=== PATIENT | male | born 1955 | race Caucasian/White ===

== ENCOUNTER 2020-11-06 14:15 | Emergency (ER) | payer OTHER ==
[~2020-11-06] VITALS: Ht 175.3 cm; Wt 61.0 kg
[2020-11-06 14:27] VITALS: BP 106/65
[2020-11-06] MEDS ORDERED: dexamethasone sod phosphate 10mg/ml inj PO STA (15:05)
[2020-11-06] MEDS ORDERED: ALBU8.5H17 IH (15:45)
[2020-11-06] MEDS ORDERED: DEXA6TAB6 PO (15:45)
== END 2020-11-06 16:21 | disposition home or self-care (01) ==
LOC: ER 14:16
DX: U07.1 COVID-19 (principal); R05 Cough; R51.9 Headache, unspecified; Z79.899 Other long term (current) drug therapy
CPT/HCPCS: 99283; J1100

== ENCOUNTER 2020-11-09 07:07 | Inpatient (IN) | payer OTHER ==
[~2020-11-09] VITALS: Ht 172.7 cm; Wt 59.1 kg
[2020-11-09] MEDS: normal saline 1000ml 1,000 ML IV SCH ×2 (00:30→11:49)
[~2020-11-09 07:07] MED LIST: ALBU8.5H17 IH; DEXA6TAB6 PO
[2020-11-09] MEDS ORDERED: dexamethasone sod phosphate 10mg/ml inj IV STA (07:27)
[2020-11-09] MEDS ORDERED: normal saline 1000ml 1,000 ML IV ONE (07:30)
[2020-11-09 08:25] LABS: BASOPHILS % (AUTO) 0.1 % (0-1); EOSINOPHILS % (AUTO) 0 % (0-6); HEMOGLOBIN 17.3 g/dl (14.0-17.9); LYMPHOCYTES # (AUTO) 0.4 X10'3 (1.1-4.8); LYMPHOCYTES % (AUTO) 2.6 % (21-51); MEAN CORPUSCULAR VOLUME 100.1 FL (78-98); MEAN PLATELET VOLUME 10.1 FL (7.4-10.4); MONOCYTES # (AUTO) 0.6 X10'3 (0-0.9); MONOCYTES % (AUTO) 3.4 % (2-12); NEUTROPHILS # (AUTO) 15.6 X10'3 (1.8-7.7); NEUTROPHILS % (AUTO) 93.9 % (42-75); PLATELET COUNT 100 X10'3 (140-440); RED BLOOD COUNT 5.09 X10'6 (4.70-6.10); WHITE BLOOD COUNT 16.6 X10'3 (4.5-11.0)
[2020-11-09 08:45] LABS: PLATELET ESTIMATE DECREASED; TOTAL CELLS COUNTED 100
[2020-11-09] MEDS ORDERED: azithromycin/NS 500mg/250ml 250 ML IV ONE (09:05)
[2020-11-09] MEDS ORDERED: CefTRIAXone/D5W-Rocephin 1gm 50 ML IV ONE (09:05)
[2020-11-09 09:07] LABS: ALANINE AMINOTRANSFERASE 31 U/L (12-78); ALBUMIN 3.3 G/DL (3.4-5.0); ALBUMIN/GLOBULIN RATIO 0.7 (1.1-1.5); ALKALINE PHOSPHATASE 59 IU/L (46-116); ANION GAP 9 (8-16); ASPARTATE AMINO TRANSFERASE 49 U/L (10-37); BILIRUBIN,TOTAL 0.7 MG/DL (0.1-1.0); BLOOD UREA NITROGEN 36 MG/DL (7-18); BUN/CREATININE RATIO 17.5 (5.4-32.0); CALCIUM 9.1 MG/DL (8.5-10.1); CHLORIDE 103 MMOL/L (99-107); CREATININE 2.06 MG/DL (0.60-1.10); GLUCOSE 147 MG/DL (70-104); POTASSIUM 4.8 MMOL/L (3.5-5.1); SODIUM 141 MMOL/L (135-145); TOTAL CARBON DIOXIDE 28.6 MMOL/L (24-32); eGFR 33 ML/MIN
[2020-11-09 09:11] LABS: FERRITIN 832 NG/ML (26-388); LACTATE DEHYDROGENASE 323 U/L (85-227); MAGNESIUM 2.5 MG/DL (1.5-2.4); TROPONIN I < 0.04 NG/ML (0.0-0.05)
[2020-11-09] MEDS ORDERED: REMDESIVIR INJ 200 MG in normal saline 100ml IV soln 60 ML IV ONE (09:15)
[2020-11-09 10:18] LABS: D-DIMER 1.05 MG/L FEU (0-0.50)
[2020-11-09] MEDS ORDERED: magnesium Cl slow-release 64mg tablet PO PRN (10:20)
[2020-11-09] MEDS ORDERED: potassium Cl 20 mEq SR tablet PO PRN ×2 (10:20)
[2020-11-09] MEDS ORDERED: ondansetron/PF 4mg/2ml inj IV PRN (10:20)
[2020-11-09] MEDS ORDERED: potassium Cl 40MEQ/1/2NS 520ml 520 ML IV PRN ×2 (10:20)
[2020-11-09] MEDS ORDERED: acetaminophen 325mg tablet PO PRN (10:20)
[2020-11-09] MEDS ORDERED: magnesium 2GM in 50ml NS 50 ML IV PRN (10:20)
[2020-11-09] MEDS ORDERED: magnesium 4gm in 100ml NS 100 ML IV PRN (10:20)
[2020-11-09] MEDS: enoxaparin 40mg/0.4ml syringe SUBCUT SCH (11:49)
[2020-11-09] MEDS ORDERED: DEXA6TAB PO (12:49)
[2020-11-09] MEDS ORDERED: ALBU17AE26 IH (12:49)
--- NOTE | 2020-11-09 13:13 | NUR ---
RECEIVED REPORT FROM IVAN CONRAD IN ER. PT GOING TO ROOM [id number]
[2020-11-09 13:25] VITALS: BP 99/63
--- NOTE | 2020-11-09 14:23 | NUR ---
PT ARRIVED TO FLOOR AT 1941
--- NOTE | 2020-11-09 15:54 | NUR ---
Page Sent PAGER ID: [phone] MESSAGE: [id number] RE: RADHA OAKLEY [id number] PT BROUGHT ALBUTEROL INHALER ON ADMIT. WOULD YOU LIKE TO ORDER THE MED OR JUST STORE IN PHARMACY FOR THE TIME BEING? THANK YOU!
[2020-11-09] MEDS ORDERED: ALBUTEROL INHALER 1 PUFF/90 MCG INHALER IH PRN ×2 (16:00→16:02)
--- NOTE | 2020-11-09 18:21 | NUR ---
Problems reprioritized. Patient report given, questions answered & plan of care reviewed with IVAN CASTANON.
[2020-11-09] MEDS ORDERED: REMDESIVIR INJ 100 MG in normal saline 100ml IV soln 80 ML IV SCH (18:45)
[2020-11-09] MEDS ORDERED: albuterol 60 PUFF/8GM Inhaler IH PRN (18:45)
[2020-11-09] MEDS: CefTRIAXone/D5W-Rocephin 1gm 50 ML IV SCH (18:45)
[2020-11-09] MEDS: K and/or MAG REPLACEMENT MC SCH (20:00)
[2020-11-09] MEDS: azithromycin/NS 500mg/250ml 250 ML IV SCH (20:33)
[2020-11-10 06:00] VITALS: BP 104/61
--- NOTE | 2020-11-10 06:18 | NUR ---
Patient in room ORTHO 4021A. I have received report from IVAN CASTANON and had the opportunity to ask questions and assume patient care.
[2020-11-10] MEDS: normal saline 1000ml 1,000 ML IV SCH ×3 (06:20→20:52)
[2020-11-10] MEDS: K and/or MAG REPLACEMENT MC SCH ×2 (08:00→19:13)
[2020-11-10] MEDS ORDERED: dexamethasone 4mg/ml inj IM SCH (08:00)
[2020-11-10] MEDS: CefTRIAXone/D5W-Rocephin 1gm 50 ML IV SCH (08:20)
[2020-11-10 08:32] LABS: EOSINOPHILS % (AUTO) 0 % (0-6); HEMOGLOBIN 15.9 g/dl (14.0-17.9); LYMPHOCYTES # (AUTO) 0.7 X10'3 (1.1-4.8); MONOCYTES # (AUTO) 0.7 X10'3 (0-0.9); RED CELL DISTRIBUTION WIDTH 13.6 % (11.5-14.5)
[2020-11-10 08:35] LABS: BASOPHILS % (AUTO) 0.3 % (0-1); HEMATOCRIT 47.1 % (42.0-52.0); LYMPHOCYTES % (AUTO) 5.1 % (21-51); MEAN CORPUSCULAR HEMOGLOBIN 33.7 PG (27.0-31.0); MEAN CORPUSCULAR HGB CONC 33.8 g/dL (33.0-36.5); MEAN CORPUSCULAR VOLUME 99.9 FL (78-98); MEAN PLATELET VOLUME 10.5 FL (7.4-10.4); MONOCYTES % (AUTO) 5.1 % (2-12); NEUTROPHILS # (AUTO) 12.3 X10'3 (1.8-7.7); NEUTROPHILS % (AUTO) 89.5 % (42-75); PLATELET COUNT 111 X10'3 (140-440); RED BLOOD COUNT 4.71 X10'6 (4.70-6.10); WHITE BLOOD COUNT 13.7 X10'3 (4.5-11.0)
[2020-11-10 08:57] LABS: ALBUMIN 2.2 G/DL (3.4-5.0); ANION GAP 9 (8-16); BLOOD UREA NITROGEN 32 MG/DL (7-18); BUN/CREATININE RATIO 24.2 (5.4-32.0); CALCIUM 8.6 MG/DL (8.5-10.1); CHLORIDE 110 MMOL/L (99-107); CREATININE 1.32 MG/DL (0.60-1.10); GLUCOSE 123 MG/DL (70-104); MAGNESIUM 2.4 MG/DL (1.5-2.4); POTASSIUM 4.8 MMOL/L (3.5-5.1); SODIUM 146 MMOL/L (135-145); TOTAL CARBON DIOXIDE 27.3 MMOL/L (24-32); eGFR 55 ML/MIN
[2020-11-10] MEDS: dexamethasone inj 8 MG in normal saline 50ml IV soln 50 ML IV SCH (09:11)
[2020-11-10] MEDS: enoxaparin 40mg/0.4ml syringe SUBCUT SCH (09:49)
[2020-11-10] MEDS: azithromycin/NS 500mg/250ml 250 ML IV SCH (09:49)
[2020-11-10 10:00] VITALS: BP 89/59
[2020-11-10] MEDS: REMDESIVIR INJ 100 MG in normal saline 100ml IV soln 80 ML IV SCH (11:22)
[2020-11-10 13:53] LABS: LARGE PLATELETS FEW; PLATELET ESTIMATE DECREASED
[2020-11-10 14:00] VITALS: BP 136/87
--- NOTE | 2020-11-10 18:13 | NUR ---
Problems reprioritized. Patient report given, questions answered & plan of care reviewed with IVAN CASTANON.
[2020-11-10] MEDS: lactobacillus rhamnosus 10,000 MMU CELLS/CAPSULE PO SCH (21:22)
[2020-11-10 22:00] VITALS: BP 124/78
[2020-11-11 02:00] VITALS: BP 128/76
[2020-11-11 06:00] VITALS: BP 96/65
--- NOTE | 2020-11-11 06:45 | NUR ---
Patient in room ORTHO 4021. I have received report from Maritza LOVE and had the opportunity to ask questions and assume patient care.
[2020-11-11] MEDS: K and/or MAG REPLACEMENT MC SCH ×2 (08:00→20:00)
[2020-11-11] MEDS ORDERED: REMDESIVIR INJ 100 MG in normal saline 100ml IV soln 80 ML IV SCH (08:00)
[2020-11-11 08:26] LABS: EOSINOPHILS % (AUTO) 0 % (0-6); LYMPHOCYTES # (AUTO) 0.5 X10'3 (1.1-4.8); LYMPHOCYTES % (AUTO) 4.7 % (21-51); MONOCYTES # (AUTO) 0.7 X10'3 (0-0.9); MONOCYTES % (AUTO) 6.5 % (2-12)
[2020-11-11 08:27] LABS: BASOPHILS # (AUTO) 0.1 X10'3 (0-0.2); BASOPHILS % (AUTO) 0.5 % (0-1); HEMATOCRIT 44.9 % (42.0-52.0); MEAN CORPUSCULAR HEMOGLOBIN 33.7 PG (27.0-31.0); MEAN CORPUSCULAR HGB CONC 33.5 g/dL (33.0-36.5); MEAN CORPUSCULAR VOLUME 100.7 FL (78-98); MEAN PLATELET VOLUME 9.7 FL (7.4-10.4); NEUTROPHILS # (AUTO) 9.4 X10'3 (1.8-7.7); NEUTROPHILS % (AUTO) 88.3 % (42-75); PLATELET COUNT 137 X10'3 (140-440); RED BLOOD COUNT 4.46 X10'6 (4.70-6.10); RED CELL DISTRIBUTION WIDTH 13.7 % (11.5-14.5); WHITE BLOOD COUNT 10.6 X10'3 (4.5-11.0)
[2020-11-11] MEDS: lactobacillus rhamnosus 10,000 MMU CELLS/CAPSULE PO SCH ×2 (08:27→20:32)
[2020-11-11] MEDS: REMDESIVIR INJ 100 MG in normal saline 100ml IV soln 80 ML IV SCH (08:27)
[2020-11-11] MEDS: azithromycin/NS 500mg/250ml 250 ML IV SCH (08:27)
[2020-11-11] MEDS: dexamethasone inj 8 MG in normal saline 50ml IV soln 50 ML IV SCH (08:27)
[2020-11-11] MEDS: CefTRIAXone/D5W-Rocephin 1gm 50 ML IV SCH (08:27)
[2020-11-11] MEDS: enoxaparin 40mg/0.4ml syringe SUBCUT SCH (08:28)
[2020-11-11 08:37] LABS: ALBUMIN 2.1 G/DL (3.4-5.0); ANION GAP 5 (8-16); BLOOD UREA NITROGEN 32 MG/DL (7-18); BUN/CREATININE RATIO 28.3 (5.4-32.0); CALCIUM 8.6 MG/DL (8.5-10.1); CHLORIDE 111 MMOL/L (99-107); CREATININE 1.13 MG/DL (0.60-1.10); GLUCOSE 134 MG/DL (70-104); MAGNESIUM 2.5 MG/DL (1.5-2.4); POTASSIUM 5.1 MMOL/L (3.5-5.1); SODIUM 145 MMOL/L (135-145); TOTAL CARBON DIOXIDE 28.9 MMOL/L (24-32); eGFR 66 ML/MIN
[2020-11-11] MEDS: normal saline 1000ml 1,000 ML IV SCH ×2 (09:17→22:38)
[2020-11-11 10:00] VITALS: BP 104/64
[2020-11-11 11:49] LABS: LARGE PLATELETS FEW; PLATELET ESTIMATE DECREASED
[2020-11-11 14:00] VITALS: BP 101/60
--- NOTE | 2020-11-11 18:34 | NUR ---
Problems reprioritized. Patient report given, questions answered & plan of care reviewed with Radha LOVE.
[2020-11-12 06:00] VITALS: BP 101/58
--- NOTE | 2020-11-12 06:49 | NUR ---
Problems reprioritized. Patient report given, questions answered & plan of care reviewed with Dominique .
[2020-11-12] MEDS: REMDESIVIR INJ 100 MG in normal saline 100ml IV soln 80 ML IV SCH (07:59)
[2020-11-12] MEDS: dexamethasone inj 8 MG in normal saline 50ml IV soln 50 ML IV SCH (07:59)
[2020-11-12] MEDS: CefTRIAXone/D5W-Rocephin 1gm 50 ML IV SCH (07:59)
[2020-11-12] MEDS: K and/or MAG REPLACEMENT MC SCH ×2 (08:00→20:00)
[2020-11-12] MEDS: normal saline 1000ml 1,000 ML IV SCH ×2 (08:01→20:29)
[2020-11-12] MEDS: azithromycin 250mg tablet PO SCH (08:01)
[2020-11-12] MEDS: lactobacillus rhamnosus 10,000 MMU CELLS/CAPSULE PO SCH ×2 (08:01→20:27)
[2020-11-12] MEDS: enoxaparin 40mg/0.4ml syringe SUBCUT SCH (08:01)
[2020-11-12 09:02] LABS: BASOPHILS % (AUTO) 0.4 % (0-1); EOSINOPHILS % (AUTO) 0 % (0-6); HEMATOCRIT 46.3 % (42.0-52.0); HEMOGLOBIN 15.3 g/dl (14.0-17.9); LYMPHOCYTES # (AUTO) 0.6 X10'3 (1.1-4.8); LYMPHOCYTES % (AUTO) 6.2 % (21-51); MEAN CORPUSCULAR HEMOGLOBIN 33.6 PG (27.0-31.0); MEAN CORPUSCULAR HGB CONC 33.1 g/dL (33.0-36.5); MEAN CORPUSCULAR VOLUME 101.6 FL (78-98); MEAN PLATELET VOLUME 9.8 FL (7.4-10.4); MONOCYTES # (AUTO) 0.8 X10'3 (0-0.9); MONOCYTES % (AUTO) 9.4 % (2-12); NEUTROPHILS # (AUTO) 7.5 X10'3 (1.8-7.7); PLATELET COUNT 175 X10'3 (140-440); RED BLOOD COUNT 4.56 X10'6 (4.70-6.10); RED CELL DISTRIBUTION WIDTH 13.4 % (11.5-14.5); WHITE BLOOD COUNT 8.9 X10'3 (4.5-11.0)
[2020-11-12 09:06] LABS: ALBUMIN 2.3 G/DL (3.4-5.0); ANION GAP 8 (8-16); BLOOD UREA NITROGEN 30 MG/DL (7-18); BUN/CREATININE RATIO 26.5 (5.4-32.0); CALCIUM 8.8 MG/DL (8.5-10.1); CHLORIDE 110 MMOL/L (99-107); CREATININE 1.13 MG/DL (0.60-1.10); GLUCOSE 124 MG/DL (70-104); MAGNESIUM 2.2 MG/DL (1.5-2.4); SODIUM 147 MMOL/L (135-145); eGFR 66 ML/MIN
[2020-11-12 10:00] VITALS: BP 99/59
[2020-11-12 10:46] LABS: TOTAL CELLS COUNTED 100
[2020-11-12 10:48] LABS: LARGE PLATELETS FEW
[2020-11-12 10:51] LABS: PLATELET ESTIMATE NORMAL
[2020-11-12 14:54] VITALS: BP 94/51
[2020-11-12 18:00] VITALS: BP 99/53
--- NOTE | 2020-11-12 18:30 | NUR ---
Patient in room ORTHO 4021. I have received report from Dominique LOVE and had the opportunity to ask questions and assume patient care.
[2020-11-12 22:00] VITALS: BP 99/56
[2020-11-13 01:51] VITALS: BP 106/67
[2020-11-13] MEDS: normal saline 1000ml 1,000 ML IV SCH (04:31)
--- NOTE | 2020-11-13 06:07 | NUR ---
Problems reprioritized. Patient report given, questions answered & plan of care reviewed with Shraddha LOVE.
--- NOTE | 2020-11-13 06:11 | NUR ---
Patient in room ORTHO 4021. I have received report from Radha LOVE and had the opportunity to ask questions and assume patient care.
[2020-11-13 06:12] VITALS: BP 120/67
[2020-11-13] MEDS: enoxaparin 40mg/0.4ml syringe SUBCUT SCH (07:33)
[2020-11-13] MEDS: lactobacillus rhamnosus 10,000 MMU CELLS/CAPSULE PO SCH (07:33)
[2020-11-13] MEDS: azithromycin 250mg tablet PO SCH (07:33)
[2020-11-13] MEDS: CefTRIAXone/D5W-Rocephin 1gm 50 ML IV SCH (07:33)
[2020-11-13] MEDS: dexamethasone inj 8 MG in normal saline 50ml IV soln 50 ML IV SCH (07:33)
[2020-11-13 07:49] LABS: BASOPHILS # (AUTO) 0.1 X10'3 (0-0.2); BASOPHILS % (AUTO) 0.7 % (0-1); EOSINOPHILS % (AUTO) 0 % (0-6); HEMATOCRIT 47.2 % (42.0-52.0); HEMOGLOBIN 15.9 g/dl (14.0-17.9); LYMPHOCYTES # (AUTO) 0.6 X10'3 (1.1-4.8); LYMPHOCYTES % (AUTO) 5.6 % (21-51); MEAN CORPUSCULAR HGB CONC 33.6 g/dL (33.0-36.5); MEAN CORPUSCULAR VOLUME 100.9 FL (78-98); MEAN PLATELET VOLUME 8.9 FL (7.4-10.4); MONOCYTES # (AUTO) 1.2 X10'3 (0-0.9); MONOCYTES % (AUTO) 11.1 % (2-12); NEUTROPHILS # (AUTO) 8.8 X10'3 (1.8-7.7); NEUTROPHILS % (AUTO) 82.6 % (42-75); PLATELET COUNT 232 X10'3 (140-440); RED BLOOD COUNT 4.67 X10'6 (4.70-6.10); WHITE BLOOD COUNT 10.7 X10'3 (4.5-11.0)
[2020-11-13] MEDS: REMDESIVIR INJ 100 MG in normal saline 100ml IV soln 80 ML IV SCH (07:49)
[2020-11-13] MEDS: K and/or MAG REPLACEMENT MC SCH (08:00)
[2020-11-13 08:06] LABS: ALBUMIN 2.3 G/DL (3.4-5.0); ANION GAP 3 (8-16); BLOOD UREA NITROGEN 30 MG/DL (7-18); BUN/CREATININE RATIO 25.9 (5.4-32.0); CALCIUM 8.6 MG/DL (8.5-10.1); CHLORIDE 109 MMOL/L (99-107); CREATININE 1.16 MG/DL (0.60-1.10); GLUCOSE 113 MG/DL (70-104); MAGNESIUM 2.6 MG/DL (1.5-2.4); POTASSIUM 4.7 MMOL/L (3.5-5.1); SODIUM 143 MMOL/L (135-145); TOTAL CARBON DIOXIDE 30.6 MMOL/L (24-32); eGFR 64 ML/MIN
[2020-11-13 09:38] VITALS: BP 115/63
--- NOTE | 2020-11-13 10:32 | NUR ---
O2 Sat at rest on room air:__84_% If below 89%: Recovery O2 Sat at rest on _92__LPM:__3_%:___% via nasal cannula (mask/nasal cannula, etc..) No further documentation is necessary. If O2 Sat did not drop below 89% on room air,ambulate patient on room air. O2 Sat while ambulating on room air:___% Recovery O2 Sat while ambulating on ___LPM:___% No further documentation is necessary. If patient does not drop below 89% while ambulating, he/she does not qualify for home O2.
[2020-11-13] MEDS ORDERED: AZI25OT PO (10:57)
[2020-11-13] MEDS ORDERED: PRED10TA23 PO (10:57)
--- NOTE | 2020-11-13 13:40 | NUR ---
Patient discharged to home via private wheelchair. Home 02 sent with patient and educated on use. [facility] Patient verbalized understanding of all instructions. Discharged with girlfriend with complications. 22 gauge iv removed from left forearm, cannula intact no complications
--- NOTE | 2020-11-13 14:53 | NUR ---
Initial: Pt admit DX COVID-19, PNA, and ALLISON per EMR. PO 75% avg heart healthy diet meeting kcal needs and just shy of meeting estimated protein needs; smoothies BIDBD added to meals to optimize protein intake; dietary notified. [facility] 11/10. Will continue to monitor. Rec: 1. continue heart healthy diet 2. smoothie BIDBD; encourage PO 3. routine bowel care 4. scaled wt this admit; subsequent weekly wts Addendum: 11/13/20 at [address] Amended: Links added.
== END 2020-11-13 13:30 | disposition home or self-care (01) | DRG 177 ==
LOC: ER 07:09 → ED HOLD 10:22 → UNDOADMIN 11:05 → ED HOLD 11:05 → ORTHO 4S 13:30 → ED HOLD 13:30
PROVIDERS: ADMIT Internal Medicine; ATTEND Internal Medicine
PROC: XW033E5 Introduction of Remdesivir Anti-infective into Peripheral Vein, Percutaneous Approach, New Technology Group 5 (ICD-10-PCS; principal; 2020-11-09)
DX: U07.1 COVID-19 (principal); J12.82 Pneumonia due to coronavirus disease 2019; N17.0 Acute kidney failure with tubular necrosis; J96.00 Acute respiratory failure, unspecified whether with hypoxia or hypercapnia; R64 Cachexia; Z68.1 Body mass index [BMI] 19.9 or less, adult; F17.210 Nicotine dependence, cigarettes, uncomplicated
CPT/HCPCS: 36415; 71045; 80048; 80053; 82728; 83605; 83615; 83735; 83880; 84145; 84484; 85007; 85008; 85025; 85379; 85384; 86140; 87040; 87081; 93005; 94760; 96365; 99285; G0378; J0456; J0696; J1100; J1650; J2405; J7030